=== PATIENT | male | born 1965 | race Caucasian/White ===

== ENCOUNTER 2016-09-20 19:28 | Inpatient (IN) | payer SELFPAY ==
[2016-09-20 20:00] VITALS: O2SAT 100
--- NOTE | 2016-09-20 20:18 | ED PDOC ---
Arrival/HPI - General Historian: Patient, Parent, Family - History of Present Illness Time/Duration: 4-6 hours Symptom Onset: Sudden Symptom Course: Unchanged Context: Other (Binge alcohol for past 2 days) <Jimenez Petty - Last Filed: 09/20/16 22:32> <Andrés Malin - Last Filed: 09/22/16 18:48> - General Chief Complaint: GI Problem Time Seen by Provider: 09/20/16 20:17 - History of Present Illness Narrative History of Present Illness (Text): 09/20/16 20:55 51yo M with no significant Past medical history here for evaluation of hematemesis. Patient is here visiting from [facility]. Two days ago, he was binge drinking with his brother, states that he had more than 15 shots of vodka. Yesterday afternoon, he drank 4 shots of vodka. He woke up this morning and had an episode of bright red blood vomitus at 11AM. He had 2 more episodes of vomiting, bright red blood, large amount as described by patient. States that he has not been able to tolerate anything PO and does report anorexia since this morning. He also reports some dark, tarry stool x1 episode which started this morning. He denies any abdominal pain. Does continue to have nausea. No chest pain, no shortness of breath. No headaches. Denies any fatigue. He takes ASA 81mg sporadically and he last took it yesterday afternoon. He denies any medical problems. PMHx: Denies PSHx: Denies Social Hx: Drinks 3-4 shots of vodka, multiple times a week. Denies any Tobacco use. Denies any illicit drugs. Lives in [facility], visiting family. Family Hx: Mother - Diabetes, Heart Disease. Father - from heart disease NKDA (Jimenez Petty) Past Medical History - Provider Review Nursing Documentation Reviewed: Yes - Travel History Have you recently traveled outside [place] w/in the past 3 mons?: Yes If Yes, travel location?: pt is visiting here from [facility] - Past History Past History: No Previous - Cardiac Hx Cardiac Disorders: Yes Hx Hypertension: Yes Hx Peripheral Edema: Yes - Psychiatric Hx Substance Use: No <Jimenez Petty - Last Filed: 09/20/16 22:32> Family/Social History - Physician Review Nursing Documentation Reviewed: Yes Family/Social History: Unknown Family HX Smoking Status: Never Smoked Hx Alcohol Use: Yes Frequency of alcohol use: Few days per week Hx Substance Use: No <Jimenez Petty - Last Filed: 09/20/16 22:32> Allergies/Home Meds <Jimenez Petty - Last Filed: 09/20/16 22:32> <Andrés Malin Lisbet - Last Filed: 09/22/16 18:48> Allergies/Adverse Reactions: Allergies No Known Allergies Allergy (Verified 09/20/16 19:59) Review of Systems - Physician Review All systems were reviewed & negative as marked: Yes - Review of Systems Constitutional: absent: Fevers Eyes: Normal ENT: Normal Respiratory: Normal. absent: SOB, Cough Cardiovascular: absent: Chest Pain, Palpitations, Edema, Syncope Gastrointestinal: Stool Changes, Nausea, Vomiting, Hematemesis, Anorexia Genitourinary Male: absent: Dysuria Musculoskeletal: absent: Back Pain Skin: absent: Skin Lesions, Laceration, Abscess Neurological: absent: Headache, Dizziness Endocrine: absent: Diaphoresis Psychiatric: absent: Anxiety, Depression <Jimenez Petty - Last Filed: 09/20/16 22:32> Physical Exam Vital Signs Reviewed: Yes Temperature: Afebrile Blood Pressure: Hypertensive Pulse: Tachycardic Respiratory Rate: Normal Appearance: Positive for: Well-Appearing, Non-Toxic, Comfortable Pain Distress: Mild Mental Status: Positive for: Alert and Oriented X 3 - Systems Exam Head: Present: Atraumatic, Normocephalic Pupils: Present: PERRL Extroacular Muscles: Present: EOMI Conjunctiva: Present: Other (mild icteric conjuntiva) Mouth: Present: Dry, Other (halitosis) Pharnyx: Present: Normal Neck: Present: Normal Range of Motion Respiratory/Chest: Present: Clear to Auscultation, Good Air Exchange. No: Respiratory Distress, Accessory Muscle Use, Wheezes, Decreased Breath Sounds, Rales, Rhonchi Cardiovascular: Present: Normal S1, S2, Peripheal Pulses Present, Tachycardic. No: Murmurs Abdomen: Present: Normal Bowel Sounds. No: Tenderness, Distention, Peritoneal Signs, Rebound, Guarding Rectal: Present: Melena (Gross melana ), Normal Rectal Tone, Other (Hemoccult Positive). No: Rectal Tenderness, Hemorrhoids, Nodule/Mass/Lesions Upper Extremity: Present: Normal Inspection. No: Edema Lower Extremity: Present: Normal Inspection. No: Edema, CALF TENDERNESS Neurological: Present: GCS=15 Skin: Present: Warm, Dry, Pale. No: Diaphoretic Lymphatic: No: Cervical Adenopathy, Axillary Adenopathy Psychiatric: Present: Alert, Oriented x 3 <Jimenez Petty - Last Filed: 09/20/16 22:32> Medical Decision Making <Jimenez Petty - Last Filed: 09/20/16 22:32> <Andrés Malin - Last Filed: 09/22/16 18:48> ED Course and Treatment: 09/20/16 21:28 51yo M with Upper GI bleed in the setting of recent binge drinking - CBC/CMP - Type and screen - PT/PTT - Troponin/EKG - Lipase - Large Bore IVs x2 - Keep NPO - IVF bolus - Zofran 4mg IVP - Protonix 80mg IVP - Supplemental O2 - Reassess and dispo Rectal exam with gross melana noted. Hemoccult positive. 09/20/16 21:31 EKG interpreted by me. Sinus Tachycardia @120. Normal [place]. No ST changes noted. 09/20/16 22:21 Discussed results with patient. Plan for admission to Tele. Patient understands and agrees with plan. All questions and concerns addressed. Discussed case with the medical staff manager and Dr. Encarnacion who accept the patient to the Hospitalist service. (Jimenez Petty) Patient Seen With Resident: Patient was seen and evaluated with resident. Came up with plan and treatment together. (Andrés Malin) - Lab Interpretations Lab Results: 09/20/16 21:10 09/20/16 21:10 Lab Results 09/20/16 21:46: Blood Type Confirm O POSITIVE 09/20/16 21:10: Alcohol, Quantitative < 10 09/20/16 21:10: PT 10.9, INR 1.01, APTT 26.4 09/20/16 21:10: Blood Type O POSITIVE, Antibody Screen Negative, BBK History Checked No verified bt 09/20/16 21:10: Sodium 135, Potassium 4.4, Chloride 93 L, Carbon Dioxide 28, Anion Gap 18, BUN 45 H, Creatinine 1.1, Est GFR ( Amer) > 60, Est GFR ( Non-Af Amer) > 60, Random Glucose 175 H, Calcium 10.2, Total Bilirubin 0.8, AST 28, ALT 49, Alkaline Phosphatase 81, Troponin I < 0.01, Total Protein 8.1, Albumin 4.3, Globulin 3.8, Albumin/Globulin Ratio 1.1, Lipase 43 09/20/16 21:10: WBC 9.7, RBC 3.93, Hgb 12.4 L, Hct 35.4 L, MCV 90.1, MCH 31.6, MCHC 35.0, RDW 12.7, Plt Count 384, MPV 8.9, Gran % 50.6, Lymph % (Auto) 39.0 H , [place] % (Auto) 9.7 H, Eos % (Auto) 0.5 L, Baso % (Auto) 0.2, Gran # 4.92, Lymph # 3.8 H, [place] # 0.9 H, Eos # 0.1, Baso # 0.02 - Medication Orders Current Medication Orders: Discontinued Medications Fentanyl (Fentanyl) Confirm Administered Dose 100 mcg .ROUTE .[facility]-MED ONE Stop: 09/21/16 12:59 Sodium Chloride (Sodium Chloride 0.9%) 1,000 mls @ 999 mls/hr IV .Q1H1M STA Stop: 09/20/16 21:40 Last Admin: 09/20/16 21:19 Dose: 999 mls/hr Sodium Chloride (Sodium Chloride 0.9%) 1,000 mls @ 100 mls/hr IV .Q10H PENDING SALE TO [facility] Last Admin: 09/21/16 09:57 Dose: 100 mls/hr Pantoprazole Sodium (Protonix 40mg Ivpb) 40 mg in 100 mls @ 20 mls/hr IVPB .Q5H PENDING SALE TO [facility] Last Admin: 09/21/16 09:57 Dose: 20 mls/hr Multivitamins/Vitamin C 10 ml/Thiamine HCl 100 mg/ Folic Acid 1 mg/ Sodium Chloride 1,011.2 mls @ 150 mls/hr IV .Q6H45M ONE Stop: 09/21/16 06:09 Last Admin: 09/21/16 01:58 Dose: 150 mls/hr Lactated Ringer's (Lactated Ringer's) 1,000 mls @ 75 mls/hr IV .[id number] ARIELLE Stop: 09/21/16 15:17 Last Admin: 09/21/16 14:28 Dose: Lorazepam (Ativan) 1 mg IVP Q3H PRN; Protocol PRN Reason: Anxiety Ondansetron HCl (Zofran Inj) 4 mg IVP STAT STA Stop: 09/20/16 20:51 Last Admin: 09/20/16 21:19 Dose: 4 mg Ondansetron HCl (Zofran Inj) 4 mg IVP Q4H PRN PRN Reason: Nausea/Vomiting Pantoprazole Sodium (Protonix Inj) 80 mg IVP STAT STA Stop: 09/20/16 20:41 Last Admin: 09/20/16 21:23 Dose: 80 mg Pantoprazole Sodium (Protonix Ec Tab) 40 mg PO 0600 ARIELLE Propofol (Diprivan) Confirm Administered Dose 200 mg .ROUTE .[facility]-MED ONE Stop: 09/21/16 12:59 - PA / TOOL DESIGN ENGINEER / Resident Statement / has reviewed & agrees with the documentation as recorded. / has examined the patient and agrees with the treatment plan. <Jimenez Petty - Last Filed: 09/20/16 22:32> - Scribe Statement The provider has reviewed the documentation as recorded by the Scribe <Andrés Malin - Last Filed: 09/22/16 18:48> - Scribe Statement Nimesh Alvares Provider Scribe Attestation: All medical record entries made by the Scribe were at my direction and personally dictated by me. I have reviewed the chart and agree that the record accurately reflects my personal performance of the history, physical exam, medical decision making, and the department course for this patient. I have also personally directed, reviewed, and agree with the discharge instructions and disposition. (Andrés Malin) Disposition/Present on Arrival - Present on Arrival Any Indicators Present on Arrival: No History of DVT/PE: No History of Uncontrolled Diabetes: No Urinary Catheter: No History of Decub. Ulcer: No History Surgical Site Infection Following: None - Disposition Have Diagnosis and Disposition been Completed?: Yes Disposition Time: 22:31 Patient Plan: Admission, Telemetry <Jimenez Petty - Last Filed: 09/20/16 22:32> <Andrés Malin - Last Filed: 09/22/16 18:48> - Disposition Diagnosis: Upper GI bleed Disposition: HOSPITALIZED Condition: FAIR
[2016-09-20] MEDS ORDERED: Sodium Chloride 0.9% 1,000 ML IV STA (20:40)
[2016-09-20 21:25] LABS: BASO # 0.02 K/mm3 (0.0-2.0); BASO % 0.2 % (0.0-3.0); EOS # 0.1 (0.0-0.7); EOS % 0.5 % (1.5-5.0); GRAN # 4.92 (1.4-6.5); GRAN % 50.6 % (50.0-68.0); HEMOGLOBIN 12.4 g/dL (14.0-18.0); LYMPH # 3.8 (1.2-3.4); MEAN CELL VOLUME 90.1 fl (80.0-105.0); MEAN CORPUSCULAR HEMOGLOBIN 31.6 pg (25.0-35.0); MEAN PLATELET VOLUME 8.9 fl (7.0-11.0); MONO # 0.9 (0.1-0.6); MONO % 9.7 % (1.0-6.0); PLATELET COUNT 384 10^3/uL (120.0-450.0); RBC 3.93 10^6/uL (3.5-6.1); RED CELL DISTRIBUTION WIDTH 12.7 % (11.5-14.5); WHITE BLOOD COUNT 9.7 10^3/ul (4.5-11.0)
[2016-09-20 21:35] LABS: ALB/GLOB RATIO 1.1 (1.1-1.8); ALBUMIN 4.3 g/dL (3.0-4.8); ALT/SGPT 49 U/L (7-56); AST/SGOT 28 U/L (15-59); BLOOD UREA NITROGEN 45 mg/dL (7-21); CALCIUM 10.2 mg/dL (8.4-10.5); GFR AFRICAN-AMERICAN > 60; GFR NON-AFRICAN AMERICAN > 60; LIPASE 43 U/L (23-300)
[2016-09-20 21:46] LABS: TROPONIN I < 0.01 ng/mL
[2016-09-20 21:52] LABS: INR 1.01 (0.93-1.08); PARTIAL THROMBOPLASTIN TIME 26.4 Seconds (23.7-30.8); PROTHROMBIN TIME 10.9 Seconds (9.9-11.8)
[2016-09-20] MEDS: Sodium Chloride 0.9% 1,000 ML IV SCH (23:06)
[2016-09-20] MEDS ORDERED: Multivitamin (MVI) 10 ML, Thiamine 100 MG, Folic Acid 1 MG in Sodium Chloride 0.9% 1,00... IV ONE (23:25)
[2016-09-20] MEDS: Pantoprazole 40mg/100ml IVPB 40 MG/100 ML BAG IVPB SCH (23:41)
--- NOTE | 2016-09-21 01:04 | CP.PCM.HP ---
<ROCKY LEE - Last Filed: 09/21/16 01:33> History of Present Illness - History of Present Illness History of Present Illness: CC: Hematemesis/Melena HPI: Mr. Yi is a 51 year old male with a past medical history of nephrolithiasis who presented to the ED with complaints of hematemesis and melena. He states that on 09/20 around 1100 he had three episodes of hematemesis that he states was around a half cup of volume of bright red blood. He had no further episodes of hematemesis but around 1400 he had three episodes melena that he reports as "diarrhea". He has had anorexia since the morning of 09/20. Patient is here visiting from [facility] and has been here for approximately two weeks. Two days ago, he was binge drinking with his brother and states that he had two bottles of vodka. Yesterday afternoon, he drank 3 mixed drinks totaling 4 shots of vodka. An EKG in the ED showed sinus tachycardia. Currently patient reports that his only symptoms are nausea and feeling "tremulous". He denies any fever, chills, fatigue, weight loss, headache, dizziness, LOC, changes in his vision, chest pain, palpitations, cough, shortness of breath, abdominal pain, constipation, or any numbness/tingling/ weakness of any extremity. PMH: Nephrolithiasis PSH: Denies Family: Mother - Diabetes, Heart Disease. Father - from heart disease Social: Drinks 13oz of "cheap rum" 2-3 times a week, denies any tobacco or illicit drug use. Lives in [facility]. Allergies: NKDA Home meds: ASA PRN Present on Admission - Present on Admission Any Indicators Present on Admission: No Review of Systems - Review of Systems Review of Systems: Please refer to HPI Past Patient History - Past Social History Smoking Status: Never Smoked - CARDIAC Hx Cardiac Disorders: Yes Hx Hypertension: Yes Hx Peripheral Edema: Yes - PSYCHIATRIC Hx Substance Use: No - SURGICAL HISTORY Hx Surgeries: No Meds Allergies/Adverse Reactions: Allergies Allergy/AdvReac Type Severity Reaction Status Date / Time No Known Allergies Allergy Verified 09/20/16 19:59 Physical Exam - Constitutional Appears: No Acute Distress - Head Exam Head Exam: NORMAL INSPECTION, NORMOCEPHALIC - Eye Exam Eye Exam: EOMI, Normal appearance, PERRL. absent: Conjunctival injection Pupil Exam: NORMAL ACCOMODATION - ENT Exam ENT Exam: Mucous Membranes Moist, Normal Exam - Neck Exam Neck exam: Positive for: Full Rom, Normal Inspection. Negative for: Lymphadenopathy, Meningismus - Respiratory Exam Respiratory Exam: Clear to Auscultation Bilateral, NORMAL BREATHING PATTERN. absent: Accessory Muscle Use, Chest Wall Tenderness, Rales, Rhonchi, Wheezes, Respiratory Distress - Cardiovascular Exam Cardiovascular Exam: Tachycardia, REGULAR RHYTHM, +S1, +S2 - GI/Abdominal Exam GI & Abdominal Exam: Normal Bowel Sounds, Soft. absent: Distended, Firm, Guarding, Organomegaly, Tenderness - Rectal Exam Rectal Exam: absent: Bloody Stool, Hemorrhoids, Fecal Impaction Additional comments: Dark brown symptoms - Exam Exam: absent: Bladder Distension - Extremities Exam Extremities exam: Positive for: normal capillary refill, normal inspection, pedal pulses present. Negative for: calf tenderness, pedal edema - Back Exam Back exam: absent: CVA tenderness (L), CVA tenderness (R) - Neurological Exam Neurological exam: Alert, CN II-XII Intact, Oriented x3 - Psychiatric Exam Psychiatric exam: Normal Affect, Normal Mood - Skin Skin Exam: Dry, Intact, Normal Color, Warm Results - Vital Signs Recent Vital Signs: Last Vital Signs Temp 99.2 F 09/20/16 19:59 Pulse 119 H 09/20/16 21:50 Resp 22 09/20/16 21:50 BP 140/90 09/20/16 21:50 Pulse Ox 100 09/20/16 21:50 - Labs Result Diagrams: 09/20/16 21:10 09/20/16 21:10 Assessment & Plan - Assessment and Plan (Free Text) Assessment: 51 year old male with a past medical history of nephrolithiasis who presented to the ED with complaints of hematemesis and melena Plan: 1. Acute Hematemesis/Melena -H/H: 12.4/35.4 on admission -Protonix Drip -IVF: NS at 100mls/hr -NPO diet -will cont to monitor clinically with VS Q1H and daily CBC/CMP -will obtain consent for blood products and put in chart -GI Consulted, will follow recommendations 2. History of Alcohol Abuse -Ativan 1mg Q3H PRN -IVF: Banana Bag at 150mls/hr in NS -Zofran PRN -CIWA protocol, Aspiration/Seizure/Fall precautions 3. GI/DVT Prophylaxis -Protonix/scd's Patient seen and assessed with attending, Dr. Encarnacion. - Date & Time Date: 09/21/16 Time: 01:45 Decision To Admit - Pt Status Changed To: Hospital Disposition Of: Inpatient Admission - Admit Certification Admit to Inpatient:: After my assessment, the patient will require hospitalization for at least two midnights. This is because of the severity of symptoms shown, intensity of services needed, and/or the medical risk in this patient being treated as an outpatient. - . Bed Request Type: Telemetry <Alberto Encarnacion Q - Last Filed: 09/21/16 22:02> Results - Vital Signs Recent Vital Signs: Last Vital Signs Temp 98.4 F 09/21/16 18:07 Pulse 98 H 09/21/16 18:07 Resp 20 09/21/16 18:07 BP 118/79 09/21/16 18:07 Pulse Ox 100 09/21/16 13:45 - Labs Result Diagrams: 09/21/16 05:45 09/21/16 05:45 Labs: Laboratory Results - last 24 hr 09/21/16 09/21/16 09/21/16 02:00 05:45 05:45 WBC 7.0 D RBC 3.25 L Hgb 10.2 L D Hct 29.5 L MCV 90.8 MCH 31.4 MCHC 34.6 RDW 12.9 Plt Count 283 MPV 8.9 Gran % 41.3 L Lymph % (Auto) 50.6 H [place] % (Auto) 6.9 H Eos % (Auto) 1.1 L Baso % (Auto) 0.1 Gran # 2.87 Lymph # 3.5 H Sch[place] # 0.5 Eos # 0.1 Baso # 0.01 PT 10.9 INR 1.01 Sodium Potassium Chloride Carbon Dioxide Anion Gap BUN Creatinine Est GFR ( Amer) Est GFR (Non-Af Amer) Random Glucose Calcium Total Bilirubin AST ALT Alkaline Phosphatase Total Protein Albumin Globulin Albumin/Globulin Ratio Urine Opiates Screen Negative Urine Methadone Screen Negative Ur Barbiturates Screen Negative Ur Phencyclidine Scrn Negative Ur Amphetamines Screen Negative U Benzodiazepines Scrn Negative U Oth Cocaine Metabols Negative U Cannabinoids Screen Negative Hepatitis A IgM Ab Hep Bs Antigen Hep B Core IgM Ab Hepatitis C Antibody 09/21/16 09/21/16 05:45 05:45 WBC RBC Hgb Hct MCV MCH MCHC RDW Plt Count MPV Gran % Lymph % (Auto) [place] % (Auto) Eos % (Auto) Baso % (Auto) Gran # Lymph # Schley # Eos # Baso # PT INR Sodium 137 Potassium 4.5 Chloride 99 Carbon Dioxide 29 Anion Gap 14 BUN 46 H Creatinine 1.1 Est GFR ( Amer) > 60 Est GFR (Non-Af Amer) > 60 Random Glucose 132 H Calcium 8.8 Total Bilirubin 0.6 AST 29 ALT 37 Alkaline Phosphatase 65 Total Protein 6.8 Albumin 3.5 Globulin 3.3 Albumin/Globulin Ratio 1.1 Urine Opiates Screen Urine Methadone Screen Ur Barbiturates Screen Ur Phencyclidine Scrn Ur Amphetamines Screen U Benzodiazepines Scrn U Oth Cocaine Metabols U Cannabinoids Screen Hepatitis A IgM Ab Negative Hep Bs Antigen Negative Hep B Core IgM Ab Negative Hepatitis C Antibody Negative Attending/Attestation - Attestation I have personally seen and examined this patient.: Yes I have fully participated in the care of the patient.: Yes I have reviewed all pertinent clinical information: Yes
[2016-09-21 02:54] LABS: BARBITURATES, UR NEGATIVE (NEGATIVE); BENZODIAZEPINES, UR NEGATIVE (NEGATIVE); OPIATES, UR NEGATIVE (NEGATIVE); PHENCYCLIDINE, UR NEGATIVE (NEGATIVE)
[2016-09-21] MEDS: Pantoprazole 40mg/100ml IVPB 40 MG/100 ML BAG IVPB SCH ×2 (05:00→09:57)
[2016-09-21 06:37] LABS: BASO # 0.01 K/mm3 (0.0-2.0); BASO % 0.1 % (0.0-3.0); EOS # 0.1 (0.0-0.7); EOS % 1.1 % (1.5-5.0); GRAN # 2.87 (1.4-6.5); GRAN % 41.3 % (50.0-68.0); HEMOGLOBIN 10.2 g/dL (14.0-18.0); LYMPH # 3.5 (1.2-3.4); LYMPH % 50.6 % (22.0-35.0); MEAN CELL VOLUME 90.8 fl (80.0-105.0); MEAN CORPUSCULAR HEMOGLOBIN 31.4 pg (25.0-35.0); MEAN CORPUSCULAR HGB CONC 34.6 g/dl (31.0-37.0); MEAN PLATELET VOLUME 8.9 fl (7.0-11.0); MONO # 0.5 (0.1-0.6); MONO % 6.9 % (1.0-6.0); PLATELET COUNT 283 10^3/uL (120.0-450.0); RBC 3.25 10^6/uL (3.5-6.1); RED CELL DISTRIBUTION WIDTH 12.9 % (11.5-14.5)
[2016-09-21 06:44] LABS: INR 1.01 (0.93-1.08); PROTHROMBIN TIME 10.9 Seconds (9.9-11.8)
[2016-09-21 07:03] LABS: ALB/GLOB RATIO 1.1 (1.1-1.8); ALBUMIN 3.5 g/dL (3.0-4.8); ALT/SGPT 37 U/L (7-56); AST/SGOT 29 U/L (15-59); BLOOD UREA NITROGEN 46 mg/dL (7-21); CALCIUM 8.8 mg/dL (8.4-10.5); GFR AFRICAN-AMERICAN > 60; GFR NON-AFRICAN AMERICAN > 60
--- NOTE | 2016-09-21 07:35 | CP.PCM.CON ---
<Betty Ordoñez - Last Filed: 09/21/16 10:07> History of Present Illness - History of Present Illness History of Present Illness: Gastroenterology Fellow/PGY5 Consult Note 51 year old male with history of Alcohol abuse presenting with vomiting blood and dark stool. Patient notes he is visiting family in the [facility] and had increased alcoholic intake while socializing with family. He admits to drinking two to three bottles of vodka from tuesday to tuesday morning with a couple of his cousins. Yesterday, at 2PM having two episodes of cloudy brown vomitus episodes followed by one episode of bright red blood with each quantified at approximately 8 ounces. At 5PM, he had two episodes of black soft stools without hematochezia. Associated lightheaded and unsteady gait. Denies heartburn, indigestion, reflux, chest pain, shortness of breath, abdominal pain , distension, diarrhea, constipation, or unintentional weight loss. No prior EGD or colonoscopy. Family-denies stomach cancer, colon cancer Social- [place] rum 13 ounces 2-3x/week since 21-22 years of age, binge drink for special occasions 1-2x/ year denies tobacco or illicit drug use Surgery- none Review of Systems - Review of Systems Review of Systems: 12-point review of systems negative except for as above Past Patient History - Past Social History Smoking Status: Never Smoked - CARDIAC Hx Cardiac Disorders: Yes Hx Hypertension: Yes Hx Peripheral Edema: Yes - HEENT Other/Comment: Pt. wears reading glasses. - MUSCULOSKELETAL/RHEUMATOLOGICAL Hx Falls: No - GASTROINTESTINAL Hx Gastrointestinal Disorders: Yes (GIB) Other/Comment: GIB secondary to EtOH abuse - PSYCHIATRIC Hx Substance Use: No - SURGICAL HISTORY Hx Surgeries: No Meds Home Medications: Home Medication List Medication Instructions Recorded Confirmed Type Pantoprazole Sodium [Protonix] 40 mg PO DAILY #30 ect 09/21/16 Rx Allergies/Adverse Reactions: Allergies Allergy/AdvReac Type Severity Reaction Status Date / Time No Known Allergies Allergy Verified 09/20/16 19:59 - Medications Medications: Current Medications Sodium Chloride (Sodium Chloride 0.9%) 1,000 mls @ 100 mls/hr IV .Q10H ARIELLE Last Admin: 09/20/16 23:06 Dose: 100 mls/hr Pantoprazole Sodium (Protonix 40mg Ivpb) 40 mg in 100 mls @ 20 mls/hr IVPB .Q5H ARIELLE Last Admin: 09/21/16 05:00 Dose: 20 mls/hr Lorazepam (Ativan) 1 mg IVP Q3H PRN; Protocol PRN Reason: Anxiety Ondansetron HCl (Zofran Inj) 4 mg IVP Q4H PRN PRN Reason: Nausea/Vomiting Physical Exam - Constitutional Appears: Non-toxic, No Acute Distress - Head Exam Head Exam: ATRAUMATIC, NORMOCEPHALIC - Eye Exam Eye Exam: EOMI, PERRL, Scleral icterus Pupil Exam: PERRL. absent: Miosis, Mydriatic - ENT Exam ENT Exam: Mucous Membranes Moist, Normal Oropharynx - Neck Exam Neck exam: Positive for: Full Rom, Normal Inspection - Respiratory Exam Respiratory Exam: Clear to Auscultation Bilateral. absent: Rales, Rhonchi, Wheezes - Cardiovascular Exam Cardiovascular Exam: RRR, +S1, +S2. absent: Gallop, Rubs - GI/Abdominal Exam GI & Abdominal Exam: Normal Bowel Sounds, Soft. absent: Distended, Firm, Guarding, Organomegaly, Rebound, Rigid, Tenderness - Extremities Exam Extremities exam: Positive for: normal inspection. Negative for: pedal edema - Neurological Exam Neurological exam: Alert - Psychiatric Exam Psychiatric exam: Normal Affect, Normal Mood - Skin Skin Exam: Dry, Intact, Normal Color, Warm Results - Vital Signs Recent Vital Signs: Last Vital Signs Temp 98.1 F 09/21/16 06:00 Pulse 100 H 09/21/16 06:00 Resp 19 09/21/16 06:00 BP 114/89 09/21/16 06:00 Pulse Ox 100 09/21/16 06:00 - Labs Result Diagrams: 09/21/16 05:45 09/21/16 05:45 Labs: Laboratory Results - last 24 hr 09/21/16 09/21/16 09/21/16 02:00 05:45 05:45 WBC 7.0 D RBC 3.25 L Hgb 10.2 L D Hct 29.5 L MCV 90.8 MCH 31.4 MCHC 34.6 RDW 12.9 Plt Count 283 MPV 8.9 Gran % 41.3 L Lymph % (Auto) 50.6 H Hall % (Auto) 6.9 H Eos % (Auto) 1.1 L Baso % (Auto) 0.1 Gran # 2.87 Lymph # 3.5 H Hall # 0.5 Eos # 0.1 Baso # 0.01 PT 10.9 INR 1.01 Sodium Potassium Chloride Carbon Dioxide Anion Gap BUN Creatinine Est GFR ( Amer) Est GFR (Non-Af Amer) Random Glucose Calcium Total Bilirubin AST ALT Alkaline Phosphatase Total Protein Albumin Globulin Albumin/Globulin Ratio Urine Opiates Screen Negative Urine Methadone Screen Negative Ur Barbiturates Screen Negative Ur Phencyclidine Scrn Negative Ur Amphetamines Screen Negative U Benzodiazepines Scrn Negative U Oth Cocaine Metabols Negative U Cannabinoids Screen Negative 09/21/16 05:45 WBC RBC Hgb Hct MCV MCH MCHC RDW Plt Count MPV Gran % Lymph % (Auto) Hall % (Auto) Eos % (Auto) Baso % (Auto) Gran # Lymph # Hall # Eos # Baso # PT INR Sodium 137 Potassium 4.5 Chloride 99 Carbon Dioxide 29 Anion Gap 14 BUN 46 H Creatinine 1.1 Est GFR ( Amer) > 60 Est GFR (Non-Af Amer) > 60 Random Glucose 132 H Calcium 8.8 Total Bilirubin 0.6 AST 29 ALT 37 Alkaline Phosphatase 65 Total Protein 6.8 Albumin 3.5 Globulin 3.3 Albumin/Globulin Ratio 1.1 Urine Opiates Screen Urine Methadone Screen Ur Barbiturates Screen Ur Phencyclidine Scrn Ur Amphetamines Screen U Benzodiazepines Scrn U Oth Cocaine Metabols U Cannabinoids Screen Assessment & Plan - Assessment and Plan (Free Text) Assessment: 51 year old male with history of Alcohol abuse presenting with vomiting blood and dark stool. Active treatment of symptomatic acute blood loss anemia. No prior EGD or colonoscopy. Plan: >NPO >EGD today >continue Protonix drip >continue vitamin supplements >counselled on alcohol cessation and liver disease >normal LFTs, Platelets, INR >further recommendations after endoscopy <Caio Avila - Last Filed: 09/21/16 19:01> Meds - Medications Medications: Current Medications Sodium Chloride (Sodium Chloride 0.9%) 1,000 mls @ 100 mls/hr IV .Q10H ARIELLE Last Admin: 09/21/16 09:57 Dose: 100 mls/hr Lorazepam (Ativan) 1 mg IVP Q3H PRN; Protocol PRN Reason: Anxiety Ondansetron HCl (Zofran Inj) 4 mg IVP Q4H PRN PRN Reason: Nausea/Vomiting Pantoprazole Sodium (Protonix Ec Tab) [address] [facility] Results - Vital Signs Recent Vital Signs: Last Vital Signs Temp 98.4 F 09/21/16 18:07 Pulse 98 H 09/21/16 18:07 Resp 20 09/21/16 18:07 BP 118/79 09/21/16 18:07 Pulse Ox 100 09/21/16 13:45 - Labs Result Diagrams: 09/21/16 05:45 09/21/16 05:45 Labs: Laboratory Results - last 24 hr 09/21/16 09/21/16 09/21/16 02:00 05:45 05:45 WBC 7.0 D RBC 3.25 L Hgb 10.2 L D Hct 29.5 L MCV 90.8 MCH 31.4 MCHC 34.6 RDW 12.9 Plt Count 283 MPV 8.9 Gran % 41.3 L Lymph % (Auto) 50.6 H Hall % (Auto) 6.9 H Eos % (Auto) 1.1 L Baso % (Auto) 0.1 Gran # 2.87 Lymph # 3.5 H Hall # 0.5 Eos # 0.1 Baso # 0.01 PT 10.9 INR 1.01 Sodium Potassium Chloride Carbon Dioxide Anion Gap BUN Creatinine Est GFR ( Amer) Est GFR (Non-Af Amer) Random Glucose Calcium Total Bilirubin AST ALT Alkaline Phosphatase Total Protein Albumin Globulin Albumin/Globulin Ratio Urine Opiates Screen Negative Urine Methadone Screen Negative Ur Barbiturates Screen Negative Ur Phencyclidine Scrn Negative Ur Amphetamines Screen Negative U Benzodiazepines Scrn Negative U Oth Cocaine Metabols Negative U Cannabinoids Screen Negative Hepatitis A IgM Ab Hep Bs Antigen Hep B Core IgM Ab Hepatitis C Antibody 09/21/16 09/21/16 05:45 05:45 WBC RBC Hgb Hct MCV MCH MCHC RDW Plt Count MPV Gran % Lymph % (Auto) Hall % (Auto) Eos % (Auto) Baso % (Auto) Gran # Lymph # Hall # Eos # Baso # PT INR Sodium 137 Potassium 4.5 Chloride 99 Carbon Dioxide 29 Anion Gap 14 BUN 46 H Creatinine 1.1 Est GFR ( Amer) > 60 Est GFR (Non-Af Amer) > 60 Random Glucose 132 H Calcium 8.8 Total Bilirubin 0.6 AST 29 ALT 37 Alkaline Phosphatase 65 Total Protein 6.8 Albumin 3.5 Globulin 3.3 Albumin/Globulin Ratio 1.1 Urine Opiates Screen Urine Methadone Screen Ur Barbiturates Screen Ur Phencyclidine Scrn Ur Amphetamines Screen U Benzodiazepines Scrn U Oth Cocaine Metabols U Cannabinoids Screen Hepatitis A IgM Ab Negative Hep Bs Antigen Negative Hep B Core IgM Ab Negative Hepatitis C Antibody Negative Attending/Attestation - Attestation I have personally seen and examined this patient.: Yes I have fully participated in the care of the patient.: Yes I have reviewed all pertinent clinical information: Yes Notes (Text): 09/21/16 10:30 51 year old male with h/o alcohol abuse admitted with hematemesis. 1. Hematemesis Plan: recommend ppi as above npo for urgent egd supportive care with iv fluids in the meantime
[2016-09-21] MEDS: Sodium Chloride 0.9% 1,000 ML IV SCH (09:57)
[2016-09-21 12:57] LABS: HEPATITIS B SURFACE AG NEGATIVE (NEGATIVE)
[2016-09-21] MEDS ORDERED: Propofol 10 mg/ml Inj (20 ML) ONE (12:58)
[2016-09-21 13:02] LABS: HEPATITIS A IGM NEGATIVE (NEGATIVE); HEPATITIS B CORE AB NEGATIVE (NEGATIVE)
[2016-09-21 13:14] LABS: HEPATITIS C ANTIBODY NEGATIVE (NEGATIVE)
[2016-09-21] MEDS ORDERED: Lactated Ringer's 1,000 ML IV SCH (13:16)
[2016-09-21 18:08] VITALS: BP 118/79; PULSE 98; RESP 20; TEMP 98.4
--- NOTE | 2016-09-21 19:45 | CARD ---
APPROVED REPORT EKG Measurement Heart [id number] MI [id number] <Conclusion> Sinus tachycardia Otherwise normal ECG
[2016-09-22] MEDS ORDERED: Pantoprazole 40 mg EC Tab PO SCH (06:00)
--- NOTE | 2016-09-22 06:13 | CP.PCM.DIS ---
<NylaMary Anne - Last Filed: 09/22/16 06:18> Provider - Provider Date of Admission: 09/20/16 22:33 Attending physician: Lavinia Barr MD Primary care physician: NO PRIMARY CARE PROVIDER Consults: Dr. Benitez - hematemesis Time Spent in preparation of Discharge (in minutes): 20 Hospital Course - Lab Results Lab Results: Most Recent Lab Values WBC 7.0 10^3/ul (4.5-11.0) D 09/21/16 05:45 RBC 3.25 10^6/uL (3.5-6.1) L 09/21/16 05:45 Hgb 10.2 g/dL (14.0-18.0) L D 09/21/16 05:45 Hct 29.5 % (42.0-52.0) L 09/21/16 05:45 MCV 90.8 fl (80.0-105.0) 09/21/16 05:45 MCH 31.4 pg (25.0-35.0) 09/21/16 05:45 MCHC 34.6 g/dl (31.0-37.0) 09/21/16 05:45 RDW 12.9 % (11.5-14.5) 09/21/16 05:45 Plt Count 283 10^3/uL (120.0-450.0) 09/21/16 05:45 MPV 8.9 fl (7.0-11.0) 09/21/16 05:45 Gran % 41.3 % (50.0-68.0) L 09/21/16 05:45 Lymph % (Auto) 50.6 % (22.0-35.0) H 09/21/16 05:45 [place] % (Auto) 6.9 % (1.0-6.0) H 09/21/16 05:45 Eos % (Auto) 1.1 % (1.5-5.0) L 09/21/16 05:45 Baso % (Auto) 0.1 % (0.0-3.0) 09/21/16 05:45 Gran # 2.87 (1.4-6.5) 09/21/16 05:45 Lymph # 3.5 (1.2-3.4) H 09/21/16 05:45 [place] # 0.5 (0.1-0.6) 09/21/16 05:45 Eos # 0.1 (0.0-0.7) 09/21/16 05:45 Baso # 0.01 K/mm3 (0.0-2.0) 09/21/16 05:45 PT 10.9 Seconds (9.9-11.8) 09/21/16 05:45 INR 1.01 (0.93-1.08) 09/21/16 05:45 APTT 26.4 Seconds (23.7-30.8) 09/20/16 21:10 Sodium 137 mmol/L (132-148) 09/21/16 05:45 Potassium 4.5 mmol/L (3.6-5.0) 09/21/16 05:45 Chloride 99 mmol/L (98-107) 09/21/16 05:45 Carbon Dioxide 29 mmol/L (21-33) 09/21/16 05:45 Anion Gap 14 (10-20) 09/21/16 05:45 BUN 46 mg/dL (7-21) H 09/21/16 05:45 Creatinine 1.1 mg/dL (0.5-1.4) 09/21/16 05:45 Est GFR ( Amer) > 60 09/21/16 05:45 Est GFR (Non-Af Amer) > 60 09/21/16 05:45 Random Glucose 132 mg/dL (70-110) H 09/21/16 05:45 Calcium 8.8 mg/dL (8.4-10.5) 09/21/16 05:45 Total Bilirubin 0.6 mg/dL (0.2-1.3) 09/21/16 05:45 AST 29 U/L (15-59) 09/21/16 05:45 ALT 37 U/L (7-56) 09/21/16 05:45 Alkaline Phosphatase 65 U/L (38-133) 09/21/16 05:45 Troponin I < 0.01 ng/mL 09/20/16 21:10 Total Protein 6.8 g/dL (5.8-8.3) 09/21/16 05:45 Albumin 3.5 g/dL (3.0-4.8) 09/21/16 05:45 Globulin 3.3 gm/dL 09/21/16 05:45 Albumin/Globulin Ratio 1.1 (1.1-1.8) 09/21/16 05:45 Lipase 43 U/L (23-300) 09/20/16 21:10 Urine Opiates Screen Negative (NEGATIVE) 09/21/16 02:00 Urine Methadone Screen Negative (NEGATIVE) 09/21/16 02:00 Ur Barbiturates Screen Negative (NEGATIVE) 09/21/16 02:00 Ur Phencyclidine Scrn Negative (NEGATIVE) 09/21/16 02:00 Ur Amphetamines Screen Negative (NEGATIVE) 09/21/16 02:00 U Benzodiazepines Scrn Negative (NEGATIVE) 09/21/16 02:00 U Oth Cocaine Metabols Negative (NEGATIVE) 09/21/16 02:00 U Cannabinoids Screen Negative (NEGATIVE) 09/21/16 02:00 Alcohol, Quantitative < 10 mg/dL (0-10) 09/20/16 21:10 Hepatitis A IgM Ab Negative (NEGATIVE) 09/21/16 05:45 Hep Bs Antigen Negative (NEGATIVE) 09/21/16 05:45 Hep B Core IgM Ab Negative (NEGATIVE) 09/21/16 05:45 Hepatitis C Antibody Negative (NEGATIVE) 09/21/16 05:45 Blood Type O POSITIVE 09/20/16 21:10 Blood Type Confirm O POSITIVE 09/20/16 21:46 Antibody Screen Negative 09/20/16 21:10 BBK History Checked No verified bt 09/20/16 21:10 - Hospital Course Hospital Course: 51yo M with history of htn (patient states he takes aspirin every other day for hypertension. This diagnosis was made in [facility]). Past medical history here for evaluation of hematemesis. Patient is here visiting from [facility]. Two days ago, he was binge drinking with his brother, states that he had more than 15 shots of vodka. Yesterday afternoon, he drank 4 shots of vodka. He woke up this morning and had an episode of bright red blood vomitus at 11AM. He had 2 more episodes of vomiting, bright red blood, large amount as described by patient. States that he has not been able to tolerate anything PO and does report anorexia since the morning of admission. He also reports some dark, tarry stool x1 episode which started prior to admission into the hospital. FOBT positive for blood. EGD negative Dr. Benitez - GI- for hematemesis, GI bleed - Date & Time of H&P Date of H&P: 09/21/16 Time of H&P: 18:00 Discharge Exam - Head Exam Head Exam: ATRAUMATIC, NORMOCEPHALIC - Eye Exam Eye Exam: EOMI, Normal appearance - ENT Exam ENT Exam: Mucous Membranes Moist - Neck Exam Neck exam: Full Rom - Respiratory Exam Respiratory Exam: Clear to PA & Lateral, NORMAL BREATHING PATTERN. absent: Accessory Muscle Use, Respiratory Distress, Stridor - Cardiovascular Exam Cardiovascular Exam: REGULAR RHYTHM. absent: Bradycardia, Tachycardia - GI/Abdominal Exam GI & Abdominal Exam: Normal Bowel Sounds, Soft. absent: Unremarkable - Extremities Exam Extremities exam: full ROM - Neurological Exam Neurological exam: Alert, Normal Gait - Psychiatric Exam Psychiatric exam: Flat Affect, Normal Mood - Skin Skin Exam: Dry, Intact, Normal Color, Warm Discharge Plan - Discharge Medications Prescriptions: Pantoprazole Sodium [Protonix] 40 mg PO DAILY #30 ect - Follow Up Plan Condition: FAIR Disposition: HOME/ ROUTINE Patient education suggested?: Yes Instructions: Gastritis (GEN) Additional Instructions: 1. Follow up with [facility] clinic or PMD of choice. 2. Stop alcohol abuse. 3. continue protonix. Referrals: PCP,NO [Primary Care Provider] - <Lavinia Barr - Last Filed: 09/22/16 07:35> Provider - Provider Date of Admission: 09/20/16 22:33 Attending physician: Lavinia Barr MD Primary care physician: NO PRIMARY CARE PROVIDER Hospital Course - Lab Results Lab Results: Most Recent Lab Values WBC 7.0 10^3/ul (4.5-11.0) D 09/21/16 05:45 RBC 3.25 10^6/uL (3.5-6.1) L 09/21/16 05:45 Hgb 10.2 g/dL (14.0-18.0) L D 09/21/16 05:45 Hct 29.5 % (42.0-52.0) L 09/21/16 05:45 MCV 90.8 fl (80.0-105.0) 09/21/16 05:45 MCH 31.4 pg (25.0-35.0) 09/21/16 05:45 MCHC 34.6 g/dl (31.0-37.0) 09/21/16 05:45 RDW 12.9 % (11.5-14.5) 09/21/16 05:45 Plt Count 283 10^3/uL (120.0-450.0) 09/21/16 05:45 MPV 8.9 fl (7.0-11.0) 09/21/16 05:45 Gran % 41.3 % (50.0-68.0) L 09/21/16 05:45 Lymph % (Auto) 50.6 % (22.0-35.0) H 09/21/16 05:45 [place] % (Auto) 6.9 % (1.0-6.0) H 09/21/16 05:45 Eos % (Auto) 1.1 % (1.5-5.0) L 09/21/16 05:45 Baso % (Auto) 0.1 % (0.0-3.0) 09/21/16 05:45 Gran # 2.87 (1.4-6.5) 09/21/16 05:45 Lymph # 3.5 (1.2-3.4) H 09/21/16 05:45 [place] # 0.5 (0.1-0.6) 09/21/16 05:45 Eos # 0.1 (0.0-0.7) 09/21/16 05:45 Baso # 0.01 K/mm3 (0.0-2.0) 09/21/16 05:45 PT 10.9 Seconds (9.9-11.8) 09/21/16 05:45 INR 1.01 (0.93-1.08) 09/21/16 05:45 APTT 26.4 Seconds (23.7-30.8) 09/20/16 21:10 Sodium 137 mmol/L (132-148) 09/21/16 05:45 Potassium 4.5 mmol/L (3.6-5.0) 09/21/16 05:45 Chloride 99 mmol/L (98-107) 09/21/16 05:45 Carbon Dioxide 29 mmol/L (21-33) 09/21/16 05:45 Anion Gap 14 (10-20) 09/21/16 05:45 BUN 46 mg/dL (7-21) H 09/21/16 05:45 Creatinine 1.1 mg/dL (0.5-1.4) 09/21/16 05:45 Est GFR ( Amer) > 60 09/21/16 05:45 Est GFR (Non-Af Amer) > 60 09/21/16 05:45 Random Glucose 132 mg/dL (70-110) H 09/21/16 05:45 Calcium 8.8 mg/dL (8.4-10.5) 09/21/16 05:45 Total Bilirubin 0.6 mg/dL (0.2-1.3) 09/21/16 05:45 AST 29 U/L (15-59) 09/21/16 05:45 ALT 37 U/L (7-56) 09/21/16 05:45 Alkaline Phosphatase 65 U/L (38-133) 09/21/16 05:45 Troponin I < 0.01 ng/mL 09/20/16 21:10 Total Protein 6.8 g/dL (5.8-8.3) 09/21/16 05:45 Albumin 3.5 g/dL (3.0-4.8) 09/21/16 05:45 Globulin 3.3 gm/dL 09/21/16 05:45 Albumin/Globulin Ratio 1.1 (1.1-1.8) 09/21/16 05:45 Lipase 43 U/L (23-300) 09/20/16 21:10 Urine Opiates Screen Negative (NEGATIVE) 09/21/16 02:00 Urine Methadone Screen Negative (NEGATIVE) 09/21/16 02:00 Ur Barbiturates Screen Negative (NEGATIVE) 09/21/16 02:00 Ur Phencyclidine Scrn Negative (NEGATIVE) 09/21/16 02:00 Ur Amphetamines Screen Negative (NEGATIVE) 09/21/16 02:00 U Benzodiazepines Scrn Negative (NEGATIVE) 09/21/16 02:00 U Oth Cocaine Metabols Negative (NEGATIVE) 09/21/16 02:00 U Cannabinoids Screen Negative (NEGATIVE) 09/21/16 02:00 Alcohol, Quantitative < 10 mg/dL (0-10) 09/20/16 21:10 Hepatitis A IgM Ab Negative (NEGATIVE) 09/21/16 05:45 Hep Bs Antigen Negative (NEGATIVE) 09/21/16 05:45 Hep B Core IgM Ab Negative (NEGATIVE) 09/21/16 05:45 Hepatitis C Antibody Negative (NEGATIVE) 09/21/16 05:45 Blood Type O POSITIVE 09/20/16 21:10 Blood Type Confirm O POSITIVE 09/20/16 21:46 Antibody Screen Negative 09/20/16 21:10 BBK History Checked No verified bt 09/20/16 21:10 Attending/Attestation - Attestation I have personally seen and examined this patient.: Yes I have fully participated in the care of the patient.: Yes I have reviewed all pertinent clinical information, including history, physical exam and plan: Yes Notes (Text): 09/22/16 07:33 Attending note; Patient seen and examined with resident. Patient is a 51-year-old male admitted with acute alcohol abuse and nausea and vomiting. Minimal hematemesis at the time of admission. Treated with IV fluids, IV Ativan. Status post endoscopy. Gastritis seen. No active bleeding. Started on diet. po Protonix given. We will discharge home with close follow-up with [facility]. Diagnosis; Alcohol abuse Gastritis
== END 2016-09-21 19:51 | disposition home or self-care (01) | DRG 378 ==
LOC: ED 19:28 → ERH 22:33 → 2RNO 09-21 00:49
PROVIDERS: ADMIT Internal Medicine; ATTEND Internal Medicine
PROC: 0DB68ZX Excision of Stomach, Via Natural or Artificial Opening Endoscopic, Diagnostic (ICD-10-PCS; principal; 2016-09-21 11:15)
DX: K92.0 Hematemesis (principal); D62 Acute posthemorrhagic anemia; I10 Essential (primary) hypertension; K29.70 Gastritis, unspecified, without bleeding; B96.81 Helicobacter pylori [H. pylori] as the cause of diseases classified elsewhere; F10.10 Alcohol abuse, uncomplicated; Y90.0 Blood alcohol level of less than 20 mg/100 ml; Z87.442 Personal history of urinary calculi; Z79.82 Long term (current) use of aspirin